=== PATIENT | male | born 1985 | race Two or more races ===

== ENCOUNTER 2016-09-05 20:57 | Emergency (ER) | payer MEDICAID ==
[~2016-09-05] VITALS: Ht 162.6 cm; Wt 89.4 kg
[2016-09-05 20:59] VITALS: BP 172/93
[2016-09-05] MEDS ORDERED: HYDROcodone/APAP 5/325 TABLET ONE (21:43)
[2016-09-05] MEDS ORDERED: HYDROcodone/APAP 5/325 TABLET PO ONE (22:00)
== END 2016-09-05 22:17 | disposition home or self-care (01) ==
LOC: ED 22:00
DX: K02.9 Dental caries, unspecified (principal)
CPT/HCPCS: 99283

== ENCOUNTER 2020-04-07 15:22 | Emergency (ER) | payer SELFPAY ==
[~2020-04-07] VITALS: Ht 167.6 cm; Wt 90.0 kg
[2020-04-07] MEDS ORDERED: KETOROLAC 30 MG/1 ML IM ONE (16:00)
[2020-04-07] MEDS ORDERED: KETOROLAC 30 MG/1 ML ONE (16:07)
--- NOTE | 2020-04-07 16:27 | NUR ---
PT WAS RUNNING, DRUNK, FELL AND HURT LEFT RIBS. MEDICATED PER ORDERS. VSS. WAITING FOR IMAGES
--- NOTE | 2020-04-07 17:26 | NUR ---
Patient/Caregiver given discharge instructions and they have confirmed that they understand the instructions. Patient ambulatory with steady gait.
[2020-04-07 17:30] VITALS: BP 135/82
== END 2020-04-07 17:31 | disposition home or self-care (01) ==
LOC: ED 17:15
DX: R07.89 Other chest pain (principal); R94.31 Abnormal electrocardiogram [ECG] [EKG]; Z21 Asymptomatic human immunodeficiency virus [HIV] infection status
CPT/HCPCS: 71101; 93005; 96372; 99283; J1885